=== PATIENT | male | born 1935 | race Caucasian/White ===

== ENCOUNTER → 2017-10-31 | Outpatient (CLI) | payer MEDICARE, BC ==
--- NOTE | 2017-10-31 13:57 | XR ---
EXAMINATION TYPE: XR shoulder complete RT DATE OF EXAM: 10/31/2017 COMPARISON: NONE HISTORY: Pain TECHNIQUE: Shoulder examined in 3 FINDINGS: The humeral head articulates with the glenoid. The acromio-clavicular junction is normal. No acute fractures or dislocations are evident. A follow up study can be performed 7-10 days from acute trauma for continued pain. IMPRESSION: 1. Normal Shoulder
--- NOTE | 2017-10-31 13:58 | XR ---
EXAMINATION TYPE: XR humerus RT DATE OF EXAM: 10/31/2017 COMPARISON: NONE HISTORY: Hit midhumerus anterior, pain, difficulty abducting arm TECHNIQUE: 2 view right humerus FINDINGS: No acute fractures are evident. Joint spaces are unremarkable. IMPRESSION: 1. Normal 2 view right humerus
== END ==
LOC: RADXRMAIN 13:35
PROVIDERS: ATTEND Internal Medicine
DX: M25.511 Pain in right shoulder (principal); W19.XXXA Unspecified fall, initial encounter

== ENCOUNTER → 2023-05-15 | Outpatient (CLI) | payer MEDICARE ==
[2023-05-15 22:29] LABS: HCT 35.4 % (39.6-50.0); HGB 11.4 d/dL (13.0-17.0); MCH 34.3 pg (27.0-32.0); MCHC 32.2 d/dL (32.0-37.0); MCV 106.6 FL (80.0-97.0); Mean Platelet Volume 10.2 FL (9.5-12.2); NRBC Per 100 WBC 0 X 10*3/uL (0.00-0.01); Platelet Count 315 X 10*3/uL (140-440); RBC 3.32 X 10*6/uL (4.40-5.60); RDW 13.7 % (11.5-14.5); WBC 7.45 X 10*3/uL (4.50-10.00)
[2023-05-15 23:24] LABS: Basophils # (A) 0.07 X 10*3/uL (0.00-0.10); Basophils % (A) 0.9 %; Eosinophils # (A) 0.24 X 10*3/uL (0.04-0.35); Eosinophils % (A) 3.2 %; Lymphocytes # (A) 1.03 X 10*3/uL (0.90-5.00); Lymphocytes % (A) 13.8 %; Macrocytosis (M) 2+; Monocytes # (A) 0.57 X 10*3/uL (0.20-1.00); Monocytes % (A) 7.7 %; Neutrophils % (A) 73.9 %
[2023-05-16 00:16] LABS: ALT 18 U/L (10-49); AST 24 U/L (14-35); Albumin 4.4 d/dL (3.8-4.9); Albumin/Globulin Ratio 1.76 Ratio (1.60-3.17); Alkaline Phosphatase 62 U/L (41-126); BUN/Creat Ratio 14.83 Ratio (12.00-20.00); Blood Urea Nitrogen 17.8 mg/dL (9.0-27.0); Calcium 9.5 mg/dL (8.7-10.3); Carbon Dioxide 21.5 mmol/L (21.6-31.8); Chloride 101 mmol/L (96-109); Globulin 2.5 d/dL (1.6-3.3); Glucose 98 mg/dL (70-110); Potassium 4.8 mmol/L (3.5-5.5); Sodium 136 mmol/L (135-145); Total Bilirubin 0.9 mg/dL (0.3-1.2); Total Protein 6.9 d/dL (6.2-8.2)
[2023-05-16 10:47] LABS: INR 0.9 (<1.2); Partial Thromboplastin Time 22.5 sec (22.0-30.0); Prothrombin Time 10.4 sec (10.0-12.5)
[2023-05-16 16:54] LABS: Appearance,Urine Clear (Clear); Bilirubin,Urine Negative (Negative); Blood,Urine Negative (Negative); Color,Urine Yellow (Yellow); Ketones,Urine Negative (Negative); Nitrite,Urine Negative (Negative); PH, Urine 5.5; Specific Gravity,Urine 1.022 (1.001-1.030)
== END | disposition home or self-care (01) ==
LOC: LABPAT 12:11
PROVIDERS: ATTEND Orthopaedic Surgery
DX: Z01.812 Encounter for preprocedural laboratory examination (principal); M16.11 Unilateral primary osteoarthritis, right hip; I44.0 Atrioventricular block, first degree; I21.19 ST elevation (STEMI) myocardial infarction involving other coronary artery of inferior wall; R94.31 Abnormal electrocardiogram [ECG] [EKG]
CPT/HCPCS: 80053; 81003; 85025; 85610; 85730; 86850; 86870; 86880; 86900; 86901; 87070

== ENCOUNTER 2023-05-27 05:39 | Day surgery (SDC) | payer MEDICARE ==
[~2023-05-27 05:39] MED LIST: ACETAMINOPHEN TAB 500 MG TAB PO PRN; GABAPENTIN 300 MG CAP PO PRN; MELOXICAM 7.5 MG TAB PO PRN; TRANEXAMIC 1,000 MG/100ML-NACL 1,000 MG in SALINE 1 100ML.BAG IVPB PRN
[2023-05-27] MEDS ORDERED: DEXAMETHASONE SOD PHOSPHATE 4 MG/ML 1 ML VIAL IV ONE (05:45)
[2023-05-27] MEDS ORDERED: HYDROmorphone 0.5 MG/0.5 ML SYRINGE IVP PRN ×4 (05:45→08:52)
[2023-05-27] MEDS ORDERED: ONDANSETRON 4 MG/2 ML VIAL IVP ONE (05:45)
[2023-05-27] MEDS ORDERED: MIDAZOLAM 2 MG/2 ML VIAL IV PRN (05:45)
[2023-05-27] MEDS ORDERED: LIDOCAINE 1% (10MG/ML) FOR IV START INTRADERMA PRN (05:45)
[2023-05-27] MEDS: LACTATED RINGERS 1,000 ML IV SCH (05:48)
[2023-05-27] MEDS ORDERED: MIDAZOLAM 2 MG/2 ML VIAL IVP ONE (06:32)
[2023-05-27] MEDS ORDERED: fentaNYL (PF) 50 MCG/ML 2 ML AMP IVP ONE (06:32)
[2023-05-27] MEDS ORDERED: ceFAZolin 1,000 MG in SODIUM CHLORIDE 0.9% 1,000 ML IRRIGATION ONE (07:04)
[2023-05-27] MEDS ORDERED: ROPIVACAINE 5 MG/ML 30 ML VIAL MISCELLANE ONE ×2 (07:43→08:17)
[2023-05-27] MEDS ORDERED: LACTATED RINGERS 1,000 ML IV ONE ×2 (08:11)
--- NOTE | 2023-05-27 08:25 | P.OP ---
Date of Procedure: 05/27/23 Preoperative Diagnosis: Severe osteoarthritis of the right hip Postoperative Diagnosis: Severe severe arthritis of the right hip Procedure(s) Performed: Right total hip arthroplasty with a direct anterior approach Implants: [employer] Polarstem standard size 6 with a collar [employer] R3, 3 hole hemispherical acetabular shell, 52 mm [employer] Reflection 6.5 mm cancellus screw, 20 mm, 25 mm [employer] R3, XLPE 20 acetabular liner [employer] Oxinium femoral head 36 m, +8 All components were press-fit. The articulation is Oxinium on polyethylene. Anesthesia: spinal Surgeon: Jet Pate Brush Washer #1: Rosamaria Tucker Estimated Blood Loss (ml): 600 Pathology: none sent Condition: stable Disposition: PACU Indications for Procedure: After failure of conservative treatment we discussed the surgical and nonsurgical treatment options at length. Patient wishes to proceed with a total hip arthroplasty with a direct anterior approach. Complications specific to this procedure were discussed at length, including but not limited to infection, leg length discrepancy, dislocation, nerve injury, and fracture. Covid-19 was also discussed at length with the patient, and they are aware of the current policies and procedures. The patient was given the option of delaying surgery, but they elect to proceed knowing these risks. Patient is aware of all these complications and informed consent was obtained Operative Findings: The operative findings are consistent with severe osteoarthritis of the right hip Description of Procedure: The patient was seen and evaluated in the preoperative area and the consent was reviewed. The operative site was marked with a skin marker. The patient verified the procedure and operative site. A CHRISTIAN block was placed by anesthesia in the preoperative area. The patient was then brought to the operating room and given preoperative antibiotics intravenously. 1 g of Tranexamic acid was also given intravenously. A spinal anesthetic was administered by the anesthesia department. The patient was then placed on the [place] table with the bony prominences well-padded. The hip area was then prepped with a ChloraPrep solution and draped in the usual sterile fashion. A universal timeout was then performed, which confirmed the patient's name, surgical site, ALLERGIES, and procedure being performed on the consent. Next the incision site was located at 1 cm distal and 4 cm lateral to the anterior superior iliac spine. The skin and subcutaneous tissues were sharply incised. Incision was carefully dissected down to the fascia overlying the tensor fascia gaye muscle. This fascia was then incised in line with the muscle fibers. Care was taken to stay laterally in order to avoid injuring the lateral femoral cutaneous nerve. Next, using blunt finger dissection, the tensor fascia gaye muscle was dissected off its investing fascia. The muscle was then carefully retracted laterally with a cobra retractor over the lateral neck of the femur. Next, the circumflex vessels were identified and cauterized using the Aquamantis device. The anterior hip capsule was then exposed. The capsule was then opened and an inverted T fashion. The retractors were then placed intracapsularly. The retractors were maintained intracapsular throughout the procedure. The proximal femur was then visualized. Fluoroscopic x-rays were then taken in order to evaluate the preoperative leg lengths. A small amount of traction was placed on the leg. The femoral neck was then osteotomized at the appropriate level above the lesser trochanter. A small wedge of bone was then removed from the remaining femoral head. Next, using a corkscrew the femoral head was removed from the acetabulum. On gross visual inspection, the femoral head had complete loss of articular cartilage and multiple periarticular osteophytes. The femoral head was then measured. Attention was then turned to the acetabulum. The acetabulum was exposed and any remaining labrum was excised. Sequential reaming of the acetabulum was performed using fluoroscopic guidance until there was a good bed of bleeding cancellus bone. When the appropriate size was reached, a trial was then placed. The position and fit of the trial was checked with fluoroscopy. The trial was then removed. Then, using fluoroscopic guidance, the final implant was impacted at 20 of anteversion and 40 of abduction, and fully seated in the acetabulum. 2 screws were then placed in the acetabulum. Again fluoroscopy was used to check position of the screws. Next, the liner was then impacted, with a 20 elevated liner located in the anterior superior quadrant. Component locking was confirmed. Attention was then directed to the femur. With the aid of the [place] table, the femur was externally rotated to approximately 130, extended, and adducted under the opposite leg. A side hook was then placed under the proximal femur, and the side hook elevator was used to elevate the proximal femur while releasing the capsule. Retractors were then placed. A capsular release was performed, as well as a release of the conjoined tendon, which afforded excellent visualization of the proximal femur. Next, a box osteotome was used to lateralize the proximal femur. A fretted instrument maker hand was then used to locate the femoral canal. Sequential broaching was then performed with appropriate size which afforded excellent fixation in the proximal femur. A trial was then placed with appropriate head and neck, and the hip was gently reduced with the aid of the [place] table. Fluoroscopy was then used to check position of the components, as well as to evaluate the leg lengths and offset. The leg lengths and offset were measured as closely as possible to ensure stability of the hip. The hip was then gently dislocated and the trials were then removed. Final implants were then impacted and the hip was again reduced. Final fluoroscopic x-rays confirmed that the components were in anatomic position. The leg lengths and offset were measured and were found to coincide with the trial measurements. The hip was also taken through range of motion, and found to be stable. The hip was then copiously irrigated with antibiotic solution with pulsatile lavage. The hip was then irrigated with Irrisept solution. The soft tissues were then injected with a ropivacaine solution. A second dose of 1 g of Tranexamic acid was also given intravenously. The fascia was then closed with 2-0 strata fix suture. The subcutaneous tissue was closed with 3-0 Vicryl. The subcuticular tissue was closed with 3-0 strata fix suture. The skin was then closed with Exofin skin glue. After the glue and dried, and Optifoam silver impregnated dressing was applied. The patient was then transferred to the recovery room in stable condition. The assistant production editor CIRILO Gordon was required due to the complexity of surgery, and the need for skilled surgical garment assembly supervisor for positioning, draping, exposure, retraction, and closure of the wound.
[2023-05-27] MEDS ORDERED: NALOXONE 0.4 MG/ML 1 ML VIAL IV PRN (08:52)
[2023-05-27] MEDS ORDERED: MAGNESIUM HYDROXIDE 2,400 MG/30 ML CUP PO PRN (08:52)
[2023-05-27] MEDS ORDERED: ONDANSETRON 4 MG/2 ML VIAL IVP PRN (08:52)
--- NOTE | 2023-05-27 08:52 | XR ---
Fluoroscopy INDICATION: Pain FINDINGS: Fluoroscopy time: 60 seconds. Total dose area product (DAP) in uGy*m?, mGy*cm? (or similar): 4.4651 Images obtained: 5. IMPRESSION: 1. Documentation of fluoroscopy.
[2023-05-27] MEDS ORDERED: HYDROcodone/APAP 5-325MG 1 EACH TAB PO PRN (08:54)
--- NOTE | 2023-05-27 09:10 | P.ANPRN ---
Procedure Note - Anesthesia - Nerve Block Performed Right Jose Single Time Out Performed: Yes Date of Procedure: 05/27/23 Procedure Start Time: Procedure Stop Time: :37 Location of Patient: PreOp Indication: Acute Post-Operative Pain, Requested by Surgeon Sedation Type: Sedate with meaningful contact maintained Preparation: Sterile Prep Position: Supine Needle Types: Pajunk Needle Gauge: 21 Ultrasound used to visualize needle placement: Yes Ultrasound used to observe medication spread: Yes Injectate: 0.5% Ropivacaine (see comment for volume) (20 ml+4 mg dexamethason) Blood Aspirated: No Pain Paresthesia on Injection Noted: No Resistance on Injection: Normal Image Stored and Saved: Yes Events: Uneventful and Well Tolerated
--- NOTE | 2023-05-27 09:23 | XR ---
EXAMINATION TYPE: XR Hip Limited RT DATE OF EXAM: 05/27/2023 COMPARISON: None HISTORY: Right hip prosthesis placement TECHNIQUE: AP right hip FINDINGS: Femoral head with acetabular component is in place. No acute fractures are evident. IMPRESSION: 1. No acute fractures post right hip replacement
[2023-05-27] MEDS: HYDROcodone/APAP 5-325MG 1 EACH TAB PO PRN (12:44)
[2023-05-27] MEDS: SODIUM CHLORIDE 0.9% 1,000 ML IV SCH ×2 (12:45→23:23)
--- NOTE | 2023-05-27 15:55 | P.CONS ---
History of Present Illness - Reason for Consult Consult date: 05/27/23 Medical managemet - History of Present Illness HISTORY OF PRESENT ILLNESS This is an 88-year-old male patient with past medical history of osteoarthritis, hyperlipidemia, hypertension, vitamin D deficiency, benign prostatic hypertrophy, carotid stenosis bilaterally, chronic kidney disease stage IIIa. Patient has been brought into the hospital under the care of Dr. Pate status post right total hip arthroplasty with direct anterior approach, postop day 0. Patient's pain is currently controlled, no nausea or vomiting. Patient is utilizing incentive spirometry and doing well with this. REVIEW OF SYSTEMS Constitutional: No fever, no chills, no night sweats. No weight change. No weakness, fatigue or lethargy. No daytime sleepiness. EENT: No headache. No blurred vision or double vision, no loss of vision. No loss of Hearing, no ringing in the ears, no dizziness. No nasal drainage or congestion. No epistaxis. No sore throat. Lungs: No shortness of breath, cough, no sputum production. No wheezing. Cardiovascular: No chest pain, no lower extremity edema. No palpitations. No paroxysmal nocturnal dyspnea. No orthopnea. No lightheadedness or dizziness. No syncopal episodes. Abdominal: No abdominal pain. No nausea, vomiting. No diarrhea. No constipation. No bloody or tarry stools. No loss of appetite. Genitourinary: No dysuria, increased frequency, urgency. No urinary retention. Musculoskeletal: No myalgias. No muscle weakness, no gait dysfunction, no frequent falls. No back pain. No neck pain. Discomfort right hip Integumentary: No wounds, no lesions. No rash or pruritus. No unusual bruising. No change in hair or nails. Neurologic: No aphasia. No facial droop. No change in mentation. No head injury. No headache. No paralysis. No paresthesia. Psychiatric: No depression. No anxiety. No mood swings. Endocrine: No abnormal blood sugars. No weight change. No excessive sweating or thirst. No cold intolerance. MEDICAL HISTORY Osteoarthritis Hyperlipidemia Hypertension Vitamin D deficiency Benign prostatic hypertrophy Carotid stenosis bilaterally Chronic kidney disease stage III a SURGICAL HISTORY Right inguinal hernia repair Colonoscopy Bilateral cataract removal and intraocular lens implants ORIF left clavicle Bilateral laser eye surgery Tonsillectomy Left arm lump excision benign Bilateral vein stripping SOCIAL HISTORY Patient is a non-smoker, no alcohol use. He drinks 1-2 cups of coffee per day.. FAMILY HISTORY Father at age 42 from rheumatic heart disease. Mother at age 83 during her sleep. Patient has a sister at age 58 from autoimmune disease and wounds and one is age 72. Patient has a daughter that at age 56 from SLE and one with no major medical problems. Patient has one son alive with no major medical problems.. PHYSICAL EXAMINATION Gen: This is an 88-year-old male. He is resting in bed appears to be comfortable and in no acute distress. HEENT: Head is atraumatic, normocephalic. Pupils equal, round. Sclerae is anicteric. NECK: Supple. No JVD. No lymphadenopathy. No thyromegaly. LUNGS: Clear to auscultation. No wheezes or rhonchi. No intercostal retractions. HEART: First heart sound is depressed, second heart sound is normal, 2/6 systolic ejection murmur at left sternal border, no S3 or S4.. ABDOMEN: Soft. Bowel sounds are present. No masses. No tenderness. EXTREMITIES: No pedal edema. No calf tenderness. Dressing in place to the right anterior hip region. NEUROLOGICAL: Patient is awake, alert and oriented x3. Cranial nerves 2 through 12 are grossly intact. ASSESSMENT AND PLAN 1. Osteoarthritis of the right hip status post right total hip arthroplasty with direct anterior approach. Continue current pain management, continue incentive spirometry to reduce incidence of atelectasis and hospital-acquired pneumonia, PT and OT per orthopedics. Patient is on aspirin 81 mg twice daily for DVT prophylaxis. Next field 2. Hyperlipidemia. Continue atorvastatin 20 no grams at bedtime. 3. Hypertension. Hold Aldactone for today. 4. Benign prostatic hypertrophy. Monitor for urinary retention. 5. Chronic kidney disease stage III a. Avoid nephrotoxic agents. 6. DVT prophylaxis. Aspirin 81 mg twice daily. 7. GI prophylaxis. Pepcid 20 mg daily. Impression and plan of care have been directed as dictated by the signing physician. Soraida Casas nurse practitioner acting as scribe for signing physician. Past Medical History Past Medical History: Hyperlipidemia, Osteoarthritis (OA), Renal Disease Additional Past Medical History / Comment(s): CKD stage III, edema bilateral ankle edema, arhtritis lower L back History of Any Multi-Drug Resistant Organisms: None Reported Past Surgical History: Hernia Repair, Orthopedic Surgery, Tonsillectomy Additional Past Surgical History / Comment(s): R inguinal hernia repair, ORIF L clavicle, L arm benign lump removed, bilateral cataracts and laser eye surgery, colonoscopies, bilateral leg vein stripping Past Anesthesia/Blood Transfusion Reactions: No Reported Reaction Past Psychological History: No Psychological Hx Reported Additional Psychological History / Comment(s): Resides with spouse of 66 yrs. Smoking Status: Never smoker Past Alcohol Use History: None Reported Past Drug Use History: None Reported - Past Family History Father Additional Family Medical History / Comment(s): of rheumatic heart disease/leaky valves at the age of 42yrs. Mother Family Medical History: No Reported History Medications and Allergies Home Medications Medication Instructions Recorded Confirmed Type Aspirin 325 mg PO MOWEFR 05/16/23 05/27/23 History Atorvastatin Calcium 20 mg PO HS 05/16/23 05/27/23 History Cholecalciferol (Vitamin D3) 125 mg PO QAM 05/16/23 05/27/23 History [Vitamin D3 (125 MCG = 5,000 IU)] Spironolactone [Aldactone] 25 mg PO MOWEFR 05/16/23 05/27/23 History Aspirin [Adult Low Dose Aspirin EC] 81 mg PO BID 30 Days #60 tab 05/27/23 Rx HYDROcodone/APAP 5-325MG [[place] 1 - 2 tab PO Q6HR PRN #32 tab 05/27/23 Rx 5-325] Sennosides [Senokot] 2 tab PO DAILY PRN #60 tablet 05/27/23 Rx Allergies Allergy/AdvReac Type Severity Reaction Status Date / Time No Known Allergies Allergy Verified 05/27/23 06:52 Physical Exam Vitals: Vital Signs Temp Pulse Pulse Resp BP BP Pulse Ox 05/27/23 11:34 97.8 F 73 17 140/90 95 05/27/23 10:45 63 16 119/63 98 05/27/23 10:30 64 16 123/68 98 05/27/23 10:15 63 16 117/65 98 05/27/23 10:00 66 16 110/59 98 05/27/23 09:45 66 16 106/55 97 05/27/23 09:30 68 16 107/58 96 05/27/23 09:14 70 72 H 104/54 95 05/27/23 08:59 73 16 97/54 95 05/27/23 08:44 98.3 F 79 12 98/55 93 L 05/27/23 06:43 62 16 142/83 94 L 05/27/23 06:00 98 F 60 16 140/78 94 L Intake and Output 05/26/23 05/27/23 05/27/23 22:59 06:59 14:59 Intake Total 400 1001 Output Total 600 Balance 400 401 Intake: IV 400 1001 Output: Estimated Blood Loss 600 Other: Weight 114.31 kg 114.31 kg
[2023-05-27] MEDS: ASPIRIN 81 MG PO SCH (19:49)
[2023-05-27] MEDS ORDERED: SENNOSIDES-DOCUSATE SODIUM 1 EACH TAB PO SCH (21:00)
[2023-05-27] MEDS ORDERED: ATORVASTATIN 20 MG TAB PO SCH (21:00)
[2023-05-28] MEDS: HYDROcodone/APAP 5-325MG 1 EACH TAB PO PRN ×2 (00:02→06:32)
[2023-05-28] MEDS: LACTATED RINGERS 1,000 ML IV SCH (05:11)
[2023-05-28 07:55] VITALS: BP 139/82; PULSE 67; RESP 19; TEMP 98.6
[2023-05-28] MEDS ORDERED: FAMOTIDINE 20 MG TAB PO SCH (09:00)
[2023-05-28 09:19] LABS: HCT 38.7 % (39.6-50.0); HGB 12.8 d/dL (13.0-17.0); MCH 33.2 pg (27.0-32.0); MCHC 33.1 d/dL (32.0-37.0); MCV 100.5 FL (80.0-97.0); Mean Platelet Volume 9.5 FL (9.5-12.2); NRBC Per 100 WBC 0 X 10*3/uL (0.00-0.01); Platelet Count 288 X 10*3/uL (140-440); RBC 3.85 X 10*6/uL (4.40-5.60); RDW 13.2 % (11.5-14.5); WBC 14.27 X 10*3/uL (4.50-10.00)
[2023-05-28] MEDS: ASPIRIN 81 MG PO SCH (10:27)
--- NOTE | 2023-05-28 10:27 | P.DS ---
Providers Expected date of discharge: 05/28/23 Attending physician: Jet Pate Consults: 05/27/23 08:52 Consult Physician Routine Consulting Provider: Karthik Brown Consult Reason/Comments: medical management and anticoagulation Do you want consulting provider notified?: Yes Primary care physician: Karthik Brown - Discharge Diagnosis(es) (1) Osteoarthritis of right hip Current Visit: Yes Status: Acute (2) S/P total hip arthroplasty Current Visit: Yes Status: Acute Hospital Course: This is a 88-year-old male with known history of degenerative arthritis of the right hip. The patient presented for evaluation as an outpatient. After discussion and consideration patient elects to proceed with total hip arthroplasty. The patient is seen preoperatively by Dr. Pate and medically cleared for surgery by their primary care physician. Patient is admitted to [facility] on 05/27/2023 for total hip arthroplasty. The procedure is performed without complication or sequelae. The patient is doing well postoperatively. Labs and vital signs are stable on day of discharge. On day of discharge patient's hip incision is healing well. There is minimal erythema. There is no drainage noted at this time. There is minimal soft tissue swelling to the hip and thigh. Patient has full foot and ankle motion without difficulty or pain. Calf is soft and nontender to palpation. Neurovascular status to the right lower extremity is intact. Patient is discharged home in good condition. Please see med rec for accurate list of home medications. Plan - Discharge Summary Discharge Rx Participant: No New Discharge Prescriptions: New Aspirin [Adult Low Dose Aspirin EC] 81 mg PO BID 30 Days #60 tab HYDROcodone/APAP 5-325MG [[place] 5-325] 1 - 2 tab PO Q6HR PRN #32 tab PRN Reason: Pain Sennosides [Senokot] 2 tab PO DAILY PRN #60 tablet PRN Reason: Constipation No Action Spironolactone [Aldactone] 25 mg PO MOWEFR Cholecalciferol (Vitamin D3) [Vitamin D3 (125 MCG = 5,000 IU)] 125 mg PO QAM Aspirin 325 mg PO MOWEFR Atorvastatin Calcium 20 mg PO HS Discharge Medication List Aspirin 325 mg PO MOWEFR 05/16/23 [History] Atorvastatin Calcium 20 mg PO HS 05/16/23 [History] Cholecalciferol (Vitamin D3) [Vitamin D3 (125 MCG = 5,000 IU)] 125 mg PO QAM 05/16/23 [History] Spironolactone [Aldactone] 25 mg PO MOWEFR 05/16/23 [History] Aspirin [Adult Low Dose Aspirin EC] 81 mg PO BID 30 Days #60 tab 05/27/23 [Rx] HYDROcodone/APAP 5-325MG [[place] 5-325] 1 - 2 tab PO Q6HR PRN #32 tab 05/27/23 [Rx] Sennosides [Senokot] 2 tab PO DAILY PRN #60 tablet 05/27/23 [Rx] Follow up Appointment(s)/Referral(s): Jet Pate DO [Doctor of Osteopathic Medicine] - 2 Weeks Activity/Diet/Wound Care/Special Instructions: Weightbearing as tolerated with walker. Leave dressing intact. Dressing may be removed by home care nurse or by patient in 7 days. Then change dressing twice daily until follow up. May shower with initial dressing intact and after removal. If dressing become saturated, please remove. Please take aspirin 81mg twice daily for 30 days to prevent blood clots. Recommend use of compression stockings daily until follow up to help prevent swelling and blood clots. May remove at night before sleeping. Please follow-up with [facility] in 2 weeks and call with any questions or concerns, . Discharge Disposition: HOME WITH HOME HEALTH SERVICES
[2023-05-28 11:04] LABS: Basophils # (A) 0.02 X 10*3/uL (0.00-0.10); Basophils % (A) 0.1 %; Eosinophils # (A) 0.01 X 10*3/uL (0.04-0.35); Eosinophils % (A) 0.1 %; Lymphocytes # (A) 1.92 X 10*3/uL (0.90-5.00); Lymphocytes % (A) 13.6 %; Monocytes # (A) 2.11 X 10*3/uL (0.20-1.00); Monocytes % (A) 14.9 %; Neutrophils # (A) 9.98 X 10*3/uL (1.80-7.70); Neutrophils % (A) 70.5 %; RBC Morphology Normal (Normal)
== END 2023-05-28 11:47 | disposition home health service (06) ==
LOC: OR 05:39 → 4SSUR 08:41 → OR 05-28 11:47
PROVIDERS: ATTEND Orthopaedic Surgery
DX: M16.11 Unilateral primary osteoarthritis, right hip (principal); E78.5 Hyperlipidemia, unspecified; F17.290 Nicotine dependence, other tobacco product, uncomplicated; G89.18 Other acute postprocedural pain; N28.9 Disorder of kidney and ureter, unspecified; M19.90 Unspecified osteoarthritis, unspecified site; Z82.49 Family history of ischemic heart disease and other diseases of the circulatory system; Z98.890 Other specified postprocedural states; Z79.82 Long term (current) use of aspirin; Z79.899 Other long term (current) drug therapy
CPT/HCPCS: 27130; 97161; 97166; 64447; 85025; 73501; C1776; J2250; J1100; J0690 ×2; J2405; J3010; J2795; J1170

== ENCOUNTER 2023-07-31 14:18 | Emergency (ER) | payer MEDICARE ==
[2023-07-31 15:23] VITALS: BP 180/93; PULSE 70; RESP 16; TEMP 97.5
--- NOTE | 2023-07-31 15:25 | ED ---
Abdominal Pain HPI - General Source: patient, RN notes reviewed Mode of arrival: ambulatory Limitations: no limitations <Jet Mcmahon - Last Filed: 07/31/23 15:22> - General Source: patient, RN notes reviewed, old records reviewed <Manish Lyons - Last Filed: 07/31/23 23:48> - General Chief Complaint: Abdominal Pain Stated Complaint: left lower rib pain Time Seen by Provider: 07/31/23 15:23 - History of Present Illness Initial Comments: 88-year-old male presents emergency Department chief complaint left-sided abdominal pain. Patient states he was sitting at his desk and reached over the edge of the chair and which arm rest jabbed into his side. He states he had some pain yesterday that has worsened today states is severe pain below his ribs. He states it feels deep in his abdomen. He states he just doesn't feel well from this. Patient denies any other falls denies any abdominal surgeries and left side. Patient offers no other complaints. Denies chest pain or shortness of breath (Jet Mcmahon) Patient originally evaluated as a quick note. He is an 88-year-old male who presents in the department for any of left sided upper abdominal/flank pain. Patient states he leaned over in his office chair yesterday while sitting at his desk and the armrest dug into his side. He has been having some pain since then. States is worse today. Worse on deep inspiration. No nausea, vomiting, diarrhea. No constipation. No other acute complaints. Workup was started in triage. I evaluate patient after CT imaging and labs were completed. Pain does not radiate. Pain is worse with movements. (Manish Lyons) - Related Data Home Medications Medication Instructions Recorded Confirmed Atorvastatin Calcium 20 mg PO HS 05/16/23 05/27/23 Cholecalciferol (Vitamin D3) 125 mg PO QAM 05/16/23 05/27/23 [Vitamin D3 (125 MCG = 5,000 IU)] Spironolactone [Aldactone] 25 mg PO MOWEFR 05/16/23 05/27/23 Previous Rx's Medication Instructions Recorded Aspirin [Adult Low Dose Aspirin EC] 81 mg PO BID 30 Days #60 tab 05/27/23 HYDROcodone/APAP 5-325MG [[place] 1 - 2 tab PO Q6HR PRN #32 tab 05/27/23 5-325] Sennosides [Senokot] 2 tab PO DAILY PRN #60 tablet 05/27/23 Lidocaine 5% Patch [Lidoderm 5% 1 patch TOPICAL DAILY PRN 14 Days 07/31/23 Patch] #14 patch Allergies Allergy/AdvReac Type Severity Reaction Status Date / Time No Known Allergies Allergy Verified 07/31/23 15:14 Review of Systems ROS Other: All systems not noted in ROS Statement are negative. <Jet Mcmahon - Last Filed: 07/31/23 15:22> ROS Other: All systems not noted in ROS Statement are negative. <Manish Lyons - Last Filed: 07/31/23 23:48> ROS Statement: Those systems with pertinent positive or pertinent negative responses have been documented in the HPI. Review of Systems: CONST: Denies fever EYES: Denies blurry vision ENT: Denies nasal congestion C/V: Denies Chest pain RESP: Denies shortness of breath GI: Endorses left flank pain. : Denies dysuria SKIN: Denies rash. MSK: Denies joint pain. NEURO: Denies headache (Manish Lyons) Past Medical History Additional Past Medical History / Comment(s): high cholestrol, swelling to lower extremities. History of Any Multi-Drug Resistant Organisms: None Reported Past Surgical History: Hernia Repair, Orthopedic Surgery Past Psychological History: No Psychological Hx Reported Smoking Status: Never smoker Past Alcohol Use History: None Reported Past Drug Use History: None Reported <eJt Mcmahon - Last Filed: 07/31/23 15:22> General Exam Limitations: no limitations <Jet Mcmahon - Last Filed: 07/31/23 15:22> <Manish Lyons - Last Filed: 07/31/23 23:48> - General Exam Comments Initial Comments: Visual Physical Exam Vital signs reviewed General: Well-appearing, nontoxic, no acute distress. Head: Normocephalic, atraumatic Eyes: PERRLA, EOMI ENT: Airway patent Chest: Nonlabored breathing Skin: No visual rash, normal skin tone Neuro: Alert and oriented 3 Musculoskeletal: No gross abnormalities (Jet Mcmahon) General: Appears in no acute distress. HEAD: Normal with no signs of head trauma. EYES: EOMI ENT: Hearing grossly intact, normal oropharynx. RESPIRATORY: Clear breath sounds bilaterally. No wheezes, rales, or rhonchi. C/V: Regular rate and rhythm. S1 and S2 auscultated, peripheral pulses 2+ and intact throughout ABD: Abd is soft, nontender, nondistended EXT: Tenderness to palpation primarily over the left lateral inferior most ribs and slightly in the left lateral upper abdomen. Seems to be musculoskeletal in nature likely related to a contusion. SKIN: No rashes or lesions observed on exposed skin. NEURO: Alert and oriented x 4. (Manish Lyons) Course Vital Signs 07/31/23 15:09 Temperature 97.5 F L Pulse Rate 70 Respiratory 16 Rate Blood Pressure 180/93 O2 Sat by Pulse 95 Oximetry Medical Decision Making <Jet Mcmahon - Last Filed: 07/31/23 15:22> - Lab Data Result diagrams: 07/31/23 15:30 07/31/23 15:30 <Manish Lyons - Last Filed: 07/31/23 23:48> - Medical Decision Making I completed the quick note portion of this chart signed Jet Mcmahon PA-C (Jet Mcmahon) Was pt. sent in by a medical professional or institution ([facility], [employer], urgent care, hospital, or snf...) When possible be specific @ -No Did you speak to anyone other than the patient for history (EMS, parent, family, police, friend...)? What history was obtained from this source @ -No Did you review nursing and triage notes (agree or disagree)? Why? @ -I reviewed and agree with nursing and triage notes Were old charts reviewed (outside hosp., previous admission, EMS record, old EKG, old radiological studies, urgent care reports/EKG's, snf records)? Report findings @ -No old charts were reviewed Differential Diagnosis (chest pain, altered mental status, abdominal pain women, abdominal pain men, vaginal bleeding, weakness, fever, dyspnea, syncope, headache, dizziness, GI bleed, back pain, seizure, CVA, palpatations, mental health, musculoskeletal)? @ -Muscle strain, muscle pain, possible intra-abdominal injury. Rib fracture. Rib contusion. This list is not all inclusive. EKG interpreted by me (3pts min.). @ -None done X-rays interpreted by me (1pt min.). @ -None done CT interpreted by me (1pt min.). @ -TMs and pelvis shows no obvious specific findings to explain his current symptoms. Patient does have a large stool present, and reality concerned that they cannot definitively rule out possible edema or neoplasm of the bowels. Recommended a colonoscopy. U/S interpreted by me (1pt. min.). @ -None done What testing was considered but not performed or refused? (CT, X-rays, U/S, labs)? Why? @ -None What meds were considered but not given or refused? Why? @ -None Did you discuss the management of the patient with other professionals (professionals i.e. , PA, [employer], lab, RT, psych nurse, social work instructor, registration scheduling specialist, teacher, humane officer, rn field case manager)? Give summary @ -No Was smoking cessation discussed for >3mins.? @ -No Was critical care preformed (if so, how long)? @ -No Were there social determinants of health that impacted care today? How? (Homelessness, low income, unemployed, alcoholism, drug addiction, transportation, low edu. Level, literacy, decrease access to med. care, retirement, rehab)? @ -No Was there de-escalation of care discussed even if they declined (Discuss DNR or withdrawal of care, Hospice)? DNR status @ -No What co-morbidities impacted this encounter? (DM, HTN, Smoking, COPD, CAD, Cancer, CVA, ARF, Chemo, Hep., AIDS, mental health diagnosis, sleep apnea, morbid obesity)? @ -None Was patient admitted / discharged? Hospital course, mention meds given and route, prescriptions, significant lab abnormalities, going to OR and other pertinent info. @ -Patient's presentation and physical exam, I do suspect this to be a muscle strain however workup was completed prior to me evaluating the patient. I am in agreement with this workup. Laboratory studies are within acceptable limits. V ital signs within acceptable limits. CT imaging revealed no obvious focal injury. There is concern for nonspecific finding of a bowels for which malignancy cannot be definitively ruled out per radiology. Patient was symptomatically treated with a comparison Toradol. I spoke with the patient and updated him on his results. He expressed understanding. We discussed the CT imaging findings, I recommended valuation for colonoscopy. He did have a recent colostomy 5 years ago that was clean. He was in agreement this plan and did express understanding of the CT imaging findings. We discussed the likely expressing muscle strain or sprain or possibly underlying contusion. Musculoskeletal pain either way, and he will be discharged home. Pain is resolved at this time. He was in agreement this plan. I will provide the patient with a prescription for lidocaine patch. I instructed the patient to follow up with their PCP in the next 1-3 days. I explained that the patient should return to the emergency department if they experience any worsening symptoms. Strict return precautions were discussed with the patient. The patient expressed understanding of these instructions. I answered all questions that the patient had. The patient was discharged home in good condition with their prescriptions and follow up information. Undiagnosed new problem with uncertain prognosis? @ -No Drug Therapy requiring intensive monitoring for toxicity (Heparin, Nitro, Insulin, Cardizem)? @ -No Were any procedures done? @ -No Diagnosis/symptom? @ -Muscle strain Acute, or Chronic, or Acute on Chronic? @ -Acute Uncomplicated (without systemic symptoms) or Complicated (systemic symptoms)? @ -Complicated Side effects of treatment? @ -none Exacerbation, Progression, or Severe Exacerbation] @ -no Poses a threat to life or bodily function? @ -no (Manish Lyons) - Lab Data Lab Results 07/31/23 07/31/23 07/31/23 Range/Units 15:30 15:30 15:30 WBC 7.6 (3.8-10.6) k/uL RBC 4.37 (4.30-5.90) m/uL Hgb 14.5 (13.0-17.5) gm/dL Hct 44.5 (39.0-53.0) % MCV 101.8 H (80.0-100.0) fL MCH 33.3 (25.0-35.0) pg MCHC 32.7 (31.0-37.0) g/dL RDW 12.9 (11.5-15.5) % Plt Count 351 (150-450) k/uL MPV 7.1 Neutrophils % 73 % Lymphocytes % 16 % Monocytes % 9 % Eosinophils % 1 % Basophils % 0 % Neutrophils # 5.5 (1.3-7.7) k/uL Lymphocytes # 1.2 (1.0-4.8) k/uL Monocytes # 0.7 (0-1.0) k/uL Eosinophils # 0.0 (0-0.7) k/uL Basophils # 0.0 (0-0.2) k/uL Macrocytosis Slight Sodium 136 L (137-145) mmol/L Potassium 4.6 (3.5-5.1) mmol/L Chloride 101 (98-107) mmol/L Carbon Dioxide 24 (22-30) mmol/L Anion Gap 11 mmol/L BUN 19 (9-20) mg/dL Creatinine 1.04 (0.66-1.25) mg/dL Est GFR (CKD-EPI)AfAm 74 (>60 ml/min/1.73 sqM) Est GFR (CKD-EPI)NonAf 64 (>60 ml/min/1.73 sqM) Glucose 78 (74-99) mg/dL Calcium 9.6 (8.4-10.2) mg/dL Total Bilirubin 0.8 (0.2-1.3) mg/dL AST 27 (17-59) U/L ALT 19 (4-49) U/L Alkaline Phosphatase 69 (38-126) U/L Total Protein 7.1 (6.3-8.2) g/dL Albumin 4.3 (3.5-5.0) g/dL Urine Color Light Yellow Urine Appearance Clear (Clear) Urine pH 5.5 (5.0-8.0) Ur Specific [place] 1.039 H (1.001-1.035) Urine Protein Negative (Negative) Urine Glucose (UA) Negative (Negative) Urine Ketones Negative (Negative) Urine Blood Negative (Negative) Urine Nitrite Negative (Negative) Urine Bilirubin Negative (Negative) Urine Urobilinogen <2.0 (<2.0) mg/dL Ur Leukocyte Esterase Negative (Negative) Disposition <Jet Mcmahon - Last Filed: 07/31/23 15:22> Is patient prescribed a controlled substance at d/c from ED?: No Time of Disposition: 19:11 <Manish Lyons - Last Filed: 07/31/23 23:48> Clinical Impression: Muscle strain Disposition: HOME SELF-CARE Condition: Good Prescriptions: Lidocaine 5% Patch [Lidoderm 5% Patch] 1 patch TOPICAL DAILY PRN 14 Days #14 patch PRN Reason: Pain Referrals: Karthik Brown MD [Primary Care Provider] - 1-2 days
[2023-07-31 16:19] LABS: Basophils % (A) 0 %; Eosinophils % (A) 1 %; HCT 44.5 % (39.0-53.0); HGB 14.5 gm/dL (13.0-17.5); Lymphocytes # (A) 1.2 k/uL (1.0-4.8); Lymphocytes % (A) 16 %; MCH 33.3 pg (25.0-35.0); MCHC 32.7 g/dL (31.0-37.0); MCV 101.8 fL (80.0-100.0); Macrocytosis Slight; Mean Platelet Volume 7.1; Monocytes # (A) 0.7 k/uL (0-1.0); Monocytes % (A) 9 %; Neutrophils # (A) 5.5 k/uL (1.3-7.7); Neutrophils % (A) 73 %; Platelet Count 351 k/uL (150-450); RBC 4.37 m/uL (4.30-5.90); RDW 12.9 % (11.5-15.5); WBC 7.6 k/uL (3.8-10.6)
[2023-07-31 16:36] LABS: ALT 19 U/L (4-49); AST 27 U/L (17-59); African American GFR (CKD) 74 (>60 ml/min/1.73 sqM); Albumin 4.3 g/dL (3.5-5.0); Alkaline Phosphatase 69 U/L (38-126); Anion Gap 11 mmol/L; Blood Urea Nitrogen 19 mg/dL (9-20); Calcium 9.6 mg/dL (8.4-10.2); Carbon Dioxide 24 mmol/L (22-30); Chloride 101 mmol/L (98-107); Glucose 78 mg/dL (74-99); Non-African American GFR(CKD) 64 (>60 ml/min/1.73 sqM); Potassium 4.6 mmol/L (3.5-5.1); Sodium 136 mmol/L (137-145); Total Bilirubin 0.8 mg/dL (0.2-1.3); Total Protein 7.1 g/dL (6.3-8.2)
[2023-07-31] MEDS ORDERED: LIDOCAINE 4% PATCH TOPICAL STA (16:47)
[2023-07-31] MEDS ORDERED: KETOROLAC 15 MG/ML 1 ML VIAL IVP STA (16:47)
[2023-07-31 18:11] LABS: Appearance,Urine Clear (Clear); Bilirubin,Urine Negative (Negative); Blood,Urine Negative (Negative); Color,Urine Light Yellow; Glucose,Urine (UA) Negative (Negative); Ketones,Urine Negative (Negative); Leukocyte Esterase,Urine Negative (Negative); Nitrite,Urine Negative (Negative); PH, Urine 5.5 (5.0-8.0); Protein,Urine Negative (Negative); Specific Gravity,Urine 1.039 (1.001-1.035); Urobilinogen,Urine <2.0 mg/dL (<2.0)
--- NOTE | 2023-07-31 18:30 | CT ---
EXAMINATION TYPE: CT abdomen pelvis w con CT DLP: 2227.8 mGycm, Automated exposure control for dose reduction was used. DATE OF EXAM: 07/31/2023 5:02 PM COMPARISON: None CLINICAL INDICATION:Male, 88 years old with history of pain; left side abd pain TECHNIQUE: Axial CT of the abdomen and pelvis. Sagittal and coronal reformats were created on a [employer] workstation. Contrast used:80ml mL of Isovue 300 with IV Contrast, (none if empty) Oral contrast used: without Oral Contrast (none if empty) FINDINGS: LOWER CHEST: Heart is mildly enlarged. Small to moderate pericardial effusion, up to 1.1 cm thickness . Moderate to severe coronary to calcifications. Bilateral gynecomastia. Moderate sized hiatal hernia . Eventration along the left hemidiaphragm with significant extension up into the chest. Bibasilar st [facility] and linear opacities, likely atelectasis and/or scarring. No pleural effusion. ABDOMEN LIVER: Unremarkable liver. Portal veins are enhancing. GALLBLADDER AND BILE DUCTS: Unremarkable gallbladder. No biliary ductal dilatation. PANCREAS: No acute finding. A couple of tiny calcifications in the pancreatic head. SPLEEN: Tiny calcified granuloma, otherwise unremarkable. ADRENAL GLANDS: Unremarkable. KIDNEYS AND URETERS: Kidneys enhance symmetrically. There are several parapelvic cysts bilaterally. A few small bilateral renal hypodense nodules, consistent with cysts. Mildly prominent extrarenal pelv is on the left. No dilated ureters are seen bilaterally. PELVIS: Evaluation of pelvic structures is limited by artifact from right hip arthroplasty. BLADDER: Unremarkable as seen. Pelvic phleboliths. REPRODUCTIVE: The prostate appears enlarged measuring up to 5 cm transverse. ABDOMEN & PELVIS STOMACH AND BOWEL: Stomach and bowel do not appear significantly distended to suggest obstruction. Th e colon is difficult to assess. It seems the cecum is displaced to the left mid abdomen, contains a m oderate amount of stool and is mildly prominent measuring 7.6 cm transverse dimension. I see no bowel wall pneumatosis. The appendix is not visualized, but no pericecal inflammation is seen to suggest a ppendicitis. More distally in the colon, there is a continued moderate amount of stool up to the prox imal descending colon. There is then a relatively abrupt transition from a stool-filled somewhat prom inent colon, to decompressed/collapsed colon. This then extends over a length of about 3 cm before ag ain mildly distending with stool. The more distal colon then seems redundant and difficult to trace, however several centimeters beyond the first area of narrowing, is another similar appearance of shor t segment narrowing of the redundant colon in the left upper abdomen. There could be another similar area just distally. The most distal colon appears relatively decompressed and unremarkable. PERITONEUM/RETROPERITONEUM: No evidence of pneumoperitoneum or free fluid. VASCULATURE: Moderate atherosclerotic calcifications are present throughout the tortuous abdominal ao rta and its branches. No evidence of aortic aneurysm. IVC of normal caliber. Portal vein and splenic vein are enhancing. LYMPH NODES: No gross evidence for lymphadenopathy. SOFT TISSUE/ABDOMINAL WALL: Scarring anterior and lateral to the right hip likely postoperative. Fat- containing umbilical region hernia measures up to 2.4 cm diameter. Small fat-containing left inguinal hernia. MUSCULOSKELETAL: No acute osseous abnormalities. Moderate disc degeneration changes are present throu ghout the thoracolumbar spine. Moderate lumbar levoscoliosis. 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 IMPRESSION: 1. No clear evidence of an acute inflammatory or obstructive process to explain the patient's sympto ms. 2. The colon is difficult to assess, and is redundant. There is moderate stool throughout the colon, with several areas of luminal narrowing/collapse which could be due to nondistention versus true pat hologic thickening, such as from underlying neoplasm. Correlate with findings of nonemergent colonosc opy. 3. Moderate atherosclerotic calcifications are present throughout the tortuous abdominal aorta and i ts branches. No evidence of aortic aneurysm. 4. Heart is mildly enlarged, with small to moderate pericardial effusion, and moderate to severe cor onary arterial calcifications. 5. Bilateral gynecomastia. 6. Moderate sized hiatal hernia. 7. Enlarged prostate gland. Clinical and PSA correlation recommended.
== END 2023-07-31 19:31 | disposition home or self-care (01) ==
LOC: EC 14:18
DX: S39.011A Strain of muscle, fascia and tendon of abdomen, initial encounter (principal); E78.00 Pure hypercholesterolemia, unspecified; Z79.899 Other long term (current) drug therapy; X58.XXXA Exposure to other specified factors, initial encounter
CPT/HCPCS: 36415; 80053; 85025; 81003; 74177; 99284; 96374; J1885; Q9967

== ENCOUNTER → 2023-10-30 | Outpatient (CLI) | payer MEDICARE ==
--- NOTE | 2023-11-04 08:59 | NM ---
EXAMINATION TYPE: NM DatScan Brain SPECT DATE OF EXAM: 10/30/2023 COMPARISON: NONE HISTORY: Tremor TECHNIQUE: 10 drops of Lugol's solution was administered 1 hour prior to injection as a thyroid bloc amberly agent. After the administration of 5.0 mCi I-123 Ioflupane DaTscan. Images obtained [address] injection. SPECT images of the brain were acquired with axial and coronal reconstructions. FINDINGS: The axial SPECT images demonstrate a normal background activity and symmetric activity with in the bilateral striata. IMPRESSION: No diagnostic evidence of idiopathic Parkinson's disease or Parkinsonian syndrome.
== END | disposition home or self-care (01) ==
LOC: RADNMMAIN 08:46
PROVIDERS: ATTEND Internal Medicine
DX: G25.0 Essential tremor (principal); R25.1 Tremor, unspecified
CPT/HCPCS: 78803; A9584

== ENCOUNTER 2024-01-06 09:44 | Day surgery (SDC) | payer MEDICARE ==
[2024-01-05 09:07] VITALS: BMI 34.5
[2024-01-06 10:56] VITALS: TEMP 97.4
[2024-01-06] MEDS: IV FLUID CONTINUATION 1,000 ML IV ONE (11:06)
[2024-01-06] MEDS: LACTATED RINGERS 1,000 ML IV SCH (11:09)
[2024-01-06] MEDS ORDERED: PROPOFOL 10 MG/ML 20 ML VIAL IV ONE (11:19)
--- NOTE | 2024-01-06 11:22 | P.GSHP ---
History of Present Illness H&P Date: 01/06/24 Chief Complaint: Abnormal imaging, colon obstruction 88-year-old male here for colonoscopy. Last colonoscopy 10 to 15 years ago. Recent CAT scan shows possible obstruction descending colon. Patient otherwise doing well. Past Medical History Past Medical History: Hyperlipidemia, Osteoarthritis (OA) Additional Past Medical History / Comment(s): high cholestrol, swelling to lower extremities. History of Any Multi-Drug Resistant Organisms: None Reported Past Surgical History: Hernia Repair, Orthopedic Surgery Additional Past Surgical History / Comment(s): right hip replaced, colonoscopy Past Anesthesia/Blood Transfusion Reactions: No Reported Reaction Additional Past Anesthesia/Blood Transfusion Reaction / Comment(s): no blood transfusion Smoking Status: Never smoker Medications and Allergies Home Medications Medication Instructions Recorded Confirmed Type Atorvastatin Calcium 20 mg PO HS 05/16/23 01/06/24 History Cholecalciferol (Vitamin D3) 125 mg PO MOWEFR 05/16/23 01/06/24 History [Vitamin D3 (125 MCG = 5,000 IU)] Spironolactone [Aldactone] 25 mg PO MOWEFR 05/16/23 01/06/24 History HYDROcodone/APAP 5-325MG [[place] 1 - 2 tab PO Q6HR PRN #32 tab 05/27/23 01/06/24 Rx 5-325] Sennosides [Senokot] 2 tab PO DAILY PRN #60 tablet 05/27/23 01/06/24 Rx Aspirin 325 mg PO MOWEFR 01/05/24 01/06/24 History Allergies Allergy/AdvReac Type Severity Reaction Status Date / Time No Known Allergies Allergy Verified 01/06/24 10:44 Surgical - Exam Vital Signs Temp Pulse Resp BP Pulse Ox 97.4 F L 81 18 177/92 98 01/06/24 10:54 01/06/24 10:54 01/06/24 10:54 01/06/24 10:54 01/06/24 10:54 Physical exam: General: Well-developed, well-nourished HEENT: Normocephalic, sclerae nonicteric Abdomen: Nontender, nondistended Extremities: No edema Neuro: Alert and oriented Assessment and Plan (1) Large bowel obstruction Narrative/Plan: Will proceed with colonoscopy at this time. Current Visit: Yes Status: Acute Code(s): K56.609 - UNSP INTESTNL OBST, UNSP TO PARTIAL VERSUS COMPLETE OBST SNOMED Code(s): 602085470
--- NOTE | 2024-01-06 11:41 | P.PCN ---
Date of Procedure: 01/06/24 Procedure(s) Performed: PREOPERATIVE DIAGNOSIS: Colon obstruction, abnormal imaging POSTOPERATIVE DIAGNOSIS: Tortuous colon, poor prep, unable to cecum PROCEDURE: Colonoscopy ANESTHESIA: MAC SURGEON: Reji Navarrete M.D. SPECIMENS: None ENDOSCOPIC PROCEDURE: The patient was placed on the endoscopy table in the left decubitus position. The Olympus colonoscope was inserted into the anus and passed under direct visualization to the right side of the colon. I could not visualize the cecum. The patient had significant tortuosity and despite multiple position changes and abdominal wall pressure we were unable to advance the scope more proximal than the suspected region of the proximal transverse colon or hepatic flexure region. The scope was withdrawn. There was no neoplastic inflammatory or polypoid lesions seen throughout the visualized transverse descending sigmoid or rectum. There was no visible diverticulosis. Patient's prep was poor with retained liquid and solid stool throughout. Looking at the patient's recent CAT scan from July the abnormality was thought to be in the descending colon. It certainly appeared that we were well past the splenic flexure during today's evaluation. Digital rectal examination was normal. The patient was taken to the recovery room in stable condition per anesthesia guidelines. RECOMMENDATIONS: Resume diet. Patient is asymptomatic. If symptoms recur recommend barium enema all repeat CAT scan.
[2024-01-06 12:06] VITALS: BP 139/73; PULSE 66; RESP 17
== END 2024-01-06 12:20 | disposition home or self-care (01) ==
LOC: ORWHC2ENDO 09:44
PROVIDERS: ATTEND Surgery
DX: K63.89 Other specified diseases of intestine (principal); K56.609 Unspecified intestinal obstruction, unspecified as to partial versus complete obstruction; E78.5 Hyperlipidemia, unspecified; M19.90 Unspecified osteoarthritis, unspecified site; Z98.890 Other specified postprocedural states; Z79.899 Other long term (current) drug therapy
CPT/HCPCS: 45378; J2704

== ENCOUNTER → 2025-02-01 | Outpatient (CLI) | payer MEDICARE ==
--- NOTE | 2025-02-01 16:31 | US ---
EXAMINATION TYPE: US carotid duplex BILAT DATE OF EXAM: 02/01/2025 COMPARISON: NONE CLINICAL INDICATION: Male, 89 years old with history of [id number] CAROTID STENOSIS BILAT; Additional History: .... TECHNIQUE: Grayscale, color Doppler and spectral Doppler evaluation of the bilateral carotid systems and vertebral arteries. Indirect Doppler criteria was utilized. FINDINGS: EXAM MEASUREMENTS: RIGHT: Peak Systolic Velocity (PSV) cm/sec ----- Right CCA: 46.7 ----- Right ICA: 50.7 ----- Right ECA: 41.7 ICA/CCA ratio: 1.1 RIGHT: End Diastole cm/sec ----- Right CCA: 12.5 ----- Right ICA: 13.5 ----- Right ECA: 0.0 LEFT: Peak Systolic Velocity (PSV) cm/sec ----- Left CCA: 54.6 ----- Left ICA: 82.0 ----- Left ECA: 50.3 ICA/CCA ratio: 1.5 LEFT: End Diastole cm/sec ----- Left CCA: 15.4 ----- Left ICA: 29.2 ----- Left ECA: 9.7 VERTEBRALS (direction of flow): Right Vertebral: Antegrade Left Vertebral: Antegrade Rhythm: Normal [employer] NOTES: Color Doppler imaging shows patency with blood flow throughout the carotid artery. Spectral waveforms are within normal limits. IMPRESSION: Right: No hemodynamically significant stenosis. Left: No hemodynamically significant stenosis. Criteria for Assigning % of Stenosis / Diameter reduction (Estimation based on the indirect measurements of the internal carotid artery velocities (ICA PSV). 1. Normal (no stenosis)=ICA PSV < 180 cm/s: ratio < 2.0: ICA EDV<40 cm/s. 2. Less than 50% stenosis=ICA PSV < 180 cm/s: ratio < 2.0: ICA EDV<40 cm/s. 3. 50 to 69% stenosis=ICA PSV of 180 to 230 cm/s: ration 2.0 ? 4.0: ICA EDV 40-100 cm/s. PSV 125-180 cm/sec and ICA/CCA PSV Ratio ? 2.0 is also consistent with 50-69% stenosis 4. Greater than 70% stenosis to near occlusion= ICA PSV > 230 cm/s: ratio > 4.0: ICA EDV > 100 cm/s. 5. Near occlusion= ICA PSV velocities may be low or undetectable: variable ratio and ICA EDV. 6. Total occlusion=unable to detect flow. [facility], , 02/01/2025 4:28 PM
--- NOTE | 2025-02-01 20:52 | CA ---
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 67 - 155 / 56 - 104 cm??? LV Systolic Volume MOD BP 35.1 cm??? 22 - 58 / 19 - 49 cm??? LV Ejection Fraction MOD BP 58.4 % >= 55 % LV Cardiac Index MOD BP 1336.0 cm???/min???m??? LV Diastolic Volume MOD 4C 99.5 cm??? LV Systolic Volume MOD 4C 31.5 cm??? LV Ejection Fraction MOD 4C 68.4 % LV Cardiac Index MOD 4C 1842.6 cm???/min???m??? LV Diastolic Length 4C 8.0 cm LV Systolic Length 4C 7.2 cm LV Diastolic Volume MOD 2C 69.1 cm??? LV Systolic Volume MOD 2C 35.6 cm??? LV Ejection Fraction MOD 2C 48.4 % LV Cardiac Index MOD 2C 905.5 cm???/min???m??? LV Diastolic Length 2C 7.7 cm LV Systolic Length 2C 6.5 cm LA Volume 61.4 cm??? 18 - 58 / 22 - 52 cm??? LA Volume Index 24.8 cm???/m??? 16 - 28 cm???/m??? DOPPLER AI Peak Velocity 393.9 cm/s AI Peak Gradient 62.1 mmHg AI Pressure Half Time 835.7 ms MV Area PHT 3.0 cm??? Mitral E Point Velocity 71.3 cm/s Mitral A Point Velocity 87.1 cm/s Mitral E to A Ratio 0.8 MV Deceleration Time 249.7 ms TR Peak Velocity 235.3 cm/s TR Peak Gradient 22.1 mmHg Right Atrial Pressure 5.0 mmHg Pulmonary Artery Systolic Pressu 27.1 mmHg Right Ventricular Systolic Press 27.1 mmHg FINDINGS Left Ventricle Left ventricular ejection fraction is estimated at 60-65 %. Mildly increased septal wall thickness. Normal left ventricular systolic function with no obvious regional wall motion abnormalities. Left ventricular cavity size normal. Right Ventricle Normal right ventricular size and function. Right ventricular systolic pressure within normal limits. Right Atrium Mild right atrial dilatation. Left Atrium Mildly increased left atrial diameter. Mildly increased left atrial volume. Mildly increased left atrial area. Mitral Valve Mitral valve thickened. Mitral annular calcification. No mitral stenosis. Trace mitral regurgitation. Aortic Valve Trileaflet aortic valve. No aortic stenosis. Mild aortic regurgitation. Tricuspid Valve Structurally normal tricuspid valve. No tricuspid stenosis. Trace tricuspid regurgitation. Pulmonic Valve Pulmonic valve not well visualized. No pulmonic stenosis. Trace pulmonic regurgitation. Pericardium No pericardial effusion. Aorta Normal size aortic root and proximal ascending aorta. CONCLUSIONS Reason: Edema LVH with preserved systolic function Mild biatrial enlargement with increased atrial pressures Previewed by: Dr. Amador Hills MD (Electronically Signed) Final Date: 01 February 2025 20:51
== END | disposition home or self-care (01) ==
LOC: RADECHMAIN 14:28
PROVIDERS: ATTEND Internal Medicine
DX: I65.23 Occlusion and stenosis of bilateral carotid arteries (principal); R60.0 Localized edema; I34.0 Nonrheumatic mitral (valve) insufficiency; I51.7 Cardiomegaly
CPT/HCPCS: 93306; 93880